=== PATIENT | male | born 1960 | race Caucasian/White ===

== ENCOUNTER 2021-03-07 12:10 | Inpatient (IN) ==
[2021-03-07] MEDS ORDERED: ONDANSETRON INJ 2 MG/ML 2 ML VIAL IV STA (12:26)
[2021-03-07] MEDS ORDERED: MoRPHine SULFATE 4 MG/ML 1 ML CARP\\VIAL IV STA (12:26)
[2021-03-07] MEDS ORDERED: SODIUM CHLORIDE 0.9% 1000ML 1,000 ML IV SCH (12:30)
[2021-03-07 12:55] LABS: Basophils # (auto) 0.02 K/uL (0-0.2); Basophils % (auto) 0.2 %; Eosinophils # (auto) 0.18 K/uL (0-0.5); Eosinophils % (auto) 2.2 %; Hematocrit (blood only) 46.3 % (42-52); Hemoglobin 16.1 g/dL (14.0-18.0); Immature Granulocytes # (auto) 0.01 K/uL (0.00-0.02); Immature Granulocytes % (auto) 0.1 %; Lymphocytes # (auto) 1.71 K/uL (1.2-3.4); Lymphocytes % (auto) 20.9 %; Mean Corpuscular Hemoglobin 31.2 pg (25-34); Mean Corpuscular Hgb Conc 34.8 g/dL (32-36); Mean Corpuscular Volume 89.7 fL (80-100); Mean Platelet Volume 9.7 fL (7.4-10.4); Neutrophils # (auto) 5.36 K/uL (1.4-6.5); Neutrophils % (auto) 65.6 %; Platelet Count 260 K/uL (130-400); RDW Coefficient of Variation 12.4 % (11.5-14.5); RDW Standard Deviation 40.5 fL (36.4-46.3); Red Blood Count 5.16 M/uL (4.7-6.1); White Blood Count 8.18 K/uL (4.8-10.8)
[2021-03-07 13:05] LABS: INR 1.1 (0.9-1.1); Partial Thromboplastin Time 26.8 Seconds (21.0-31.0); Prothrombin Time 10.8 Seconds (9.0-12.0)
[2021-03-07 13:20] LABS: BUN Creatinine Ratio 19.3 (10-20); Calcium 9.4 mg/dl (8.5-10.1); Creatinine Clr Calc Pharmacy 82.9 ml/min; Est GFR (African American) 84.8 ml/min; Est GFR (Non-African American) 73.2 ml/min; Potassium 3.9 mmol/L (3.5-5.1)
--- NOTE | 2021-03-07 14:01 | Emergency Department Note ---
History of Present Illness General Chief Complaint: Back Injury/Pain Stated Complaint: REF BY DR BLACKWELL FOR EMERGENCY BACK SURGERY Time Seen by Provider: 03/07/21 12:18 History of Present Illness Provider Complaint: back pain Onset (ago): year(s) 1 Duration: progressively worsening Similar Symptoms Previously: No Location: lumbar spine Radiation: none Relieved By: + none Exacerbated By: + movement Associated symptoms: + numbness and + loss of sensation in lower extremities; no increased urinary urgency, no increased urinary frequency, no fecal incontinence, no a change in bowel habits, no fever, no chills, no abdominal pain, no dysuria, no hematuria, no parasthesias, no arthralgias or no myalgias Patient states he was seen by Dr. Blackwell orthospine in the office yesterday and referred to the emergency department for emergency surgery. Past Med/Surg History Medical History (Updated 03/07/21 @ 14:12 by Chemo Keith) No pertinent family history No pertinent past medical history Surgical History (Updated 03/07/21 @ 14:00 by Chemo Keith) No pertinent past surgical history Social History Smoking Status: Never smoker Feels Safe at Home: Yes Review of Systems A total of 10 systems reviewed and were otherwise negative Physical Exam Vital Signs Vital Signs - 24 hr 03/07/21 12:13 03/07/21 13:05 Temperature 36.3 C L Temperature Source Temporal Artery Scan Pulse Rate 75 Pulse Rate [Right Finger] 72 Pulse Rhythm Regular Pulse Rhythm [Right Finger] Regular Pulse Strength Normal Pulse Strength [Right Finger] Normal Respiratory Rate 20 17 Respiratory Effort / Characteristics Non-Labored Spontaneous Non-Labored Respiratory Depth Normal Normal Respiratory Pattern Regular Blood Pressure 182/86 H Blood Pressure [Left Arm] 171/98 H Blood Pressure Mean 118 Blood Pressure Mean [Left Arm] 122 Blood Pressure Position [Left Arm] Sitting Pulse Oximetry 99 92 Oxygen Delivery Method Room Air Room Air Sepsis Recent Fever Within 48 Hours No Sepsis New/Unexplained Change in Mental Status N/A Sepsis Action Taken by Nursing No Action Required Physical Exam GENERAL: He is oriented to person, place, and time. He appears well-developed and well-nourished. He does not appear distressed. HENT: Exam performed. - Head: Normocephalic and atraumatic. - Right Ear: External ear normal. No mastoid tenderness. - Left Ear: External ear normal. No mastoid tenderness. - Mouth/Throat: The oropharynx is clear and moist. No trismus in the jaw. No dental abscesses or uvula swelling. No oropharyngeal exudate or tonsillar abscesses. EYES: Conjunctivae and EOM are normal. Pupils are equal, round, and reactive to light. Right eye exhibits no discharge. Left eye exhibits no discharge. No scleral icterus. NECK: Normal range of motion. Neck supple. No JVD present. No spinous process tenderness present. No carotid bruit present. No rigidity. No tracheal deviation and normal range of motion present. No Brudzinski's sign and no Kernig's sign noted. CV: Normal rate, regular rhythm, normal heart sounds and intact distal pulses. There is no peripheral edema. Palpable radial pulses bue. PULM/CHEST: Effort normal and breath sounds normal. No respiratory distress. No stridor. He has no wheezes. He has no rales. - Chest Wall: He exhibits no tenderness. ABD: The abdomen is soft. Bowel sounds are normal. He has no distension. No mass is present. There is no tenderness. There is no rebound, no guarding, no Scott's sign and no tenderness at McBurney's point. Rovsig negative. MUSC/SKEL: No C or T-spine tenderness. Mild pain on palpation of the lumbar spine and lumbar paraspinal muscles bilaterally. NEURO: He is alert and oriented to person, place, and time. He has normal strength. No cranial nerve deficit or sensory deficit. Coordination and gait normal. GCS eye subscore is 4. GCS verbal subscore is 5. GCS motor subscore is 6. Cerebellar tests wnl. SKIN: Skin is warm and dry. He is not diaphoretic. PSYCH: He has a normal mood and affect. Behavior is normal. Judgment and thought content normal. Course Course 1218: The patient was evaluated in room C12. A complete history and physical ex am was performed Cardiac monitoring: An order was placed for continuous cardiac monitoring. The monitor shows a rate of 70 with sinus rhythm 1409: Sp[place] with Jonahtan [place] [facility] Dr. Blackwell will be down to evaluate the patient. 1411: Spoke with Dr. Blackwell who states he will admit the patient to his service. He states the MRI that he reviewed yesterday shows spinal stenosis that he needs to operate on. Administered Medications Sodium Chloride (Nss 1000ml) 1,000 mls @ 80 mls/hr IV .[id number] HETAL Stop: 04/06/21 12:29 Last Admin: 03/07/21 12:48 Dose: 80 mls/hr Documented by: [id number] Discontinued Medications Morphine Sulfate (Morphine Sulfate 4 Mg/Ml 1 Ml Carp\Vial) 4 mg IV NOW STA Stop: 03/07/21 12:27 Last Admin: 03/07/21 12:48 Dose: 4 mg Documented by: [id number] Ondansetron HCl (Ondansetron Inj 2 Mg/Ml 2 Ml Vial) 4 mg IV NOW STA Stop: 03/07/21 12:27 Last Admin: 03/07/21 12:48 Dose: 4 mg Documented by: [id number] Medical Decision Making Laboratory Data Result diagrams: 03/07/21 12:40 03/07/21 12:40 Lab Results 03/07/21 03/07/21 03/07/21 Range/Units 12:40 12:40 12:40 WBC 8.18 (4.8-10.8) K/uL RBC 5.16 (4.7-6.1) M/uL Hgb 16.1 (14.0-18.0) g/dL Hct 46.3 (42-52) % MCV 89.7 (80-100) fL MCH 31.2 (25-34) pg MCHC 34.8 (32-36) g/dL RDW Std Deviation 40.5 (36.4-46.3) fL RDW Coeff of Roberto 12.4 (11.5-14.5) % Plt Count 260 (130-400) K/uL MPV 9.7 (7.4-10.4) fL Immature Gran % (Auto) 0.1 % Neut % (Auto) 65.6 % Lymph % (Auto) 20.9 % [place] % (Auto) 11.0 % Eos % (Auto) 2.2 % Baso % (Auto) 0.2 % Neut # (Auto) 5.36 (1.4-6.5) K/uL Lymph # (Auto) 1.71 (1.2-3.4) K/uL [place] # (Auto) 0.90 H (0.11-0.59) K/uL Eos # (Auto) 0.18 (0-0.5) K/uL Baso # (Auto) 0.02 (0-0.2) K/uL Immature Gran # (Auto) 0.01 (0.00-0.02) K/uL PT 10.8 (9.0-12.0) Seconds INR 1.1 (0.9-1.1) APTT 26.8 (21.0-31.0) Seconds PTT Ratio 1.0 Sodium 139 (136-145) mmol/L Potassium 3.9 (3.5-5.1) mmol/L Chloride 106 (98-107) mmol/L Carbon Dioxide 28 (21-32) mmol/L Anion Gap 5.0 (3-11) BUN 21 H (7-18) mg/dl Creatinine 1.08 (0.6-1.4) mg/dl Est Cr Clr Drug Dosing 82.9 ml/min Est GFR ( Amer) 84.8 ml/min Est GFR (Non-Af Amer) 73.2 ml/min BUN/Creatinine Ratio 19.3 (10-20) Glucose 95 (70-99) mg/dl Calcium 9.4 (8.5-10.1) mg/dl SARS-CoV-2, RNA, NAAT (NEGATIVE) 03/07/21 Range/Units 12:50 WBC (4.8-10.8) K/uL RBC (4.7-6.1) M/uL Hgb (14.0-18.0) g/dL Hct (42-52) % MCV (80-100) fL MCH (25-34) pg MCHC (32-36) g/dL RDW Std Deviation (36.4-46.3) fL RDW Coeff of Roberto (11.5-14.5) % Plt Count (130-400) K/uL MPV (7.4-10.4) fL Immature Gran % (Auto) % Neut % (Auto) % Lymph % (Auto) % [place] % (Auto) % Eos % (Auto) % Baso % (Auto) % Neut # (Auto) (1.4-6.5) K/uL Lymph # (Auto) (1.2-3.4) K/uL [place] # (Auto) (0.11-0.59) K/uL Eos # (Auto) (0-0.5) K/uL Baso # (Auto) (0-0.2) K/uL Immature Gran # (Auto) (0.00-0.02) K/uL PT (9.0-12.0) Seconds INR (0.9-1.1) APTT (21.0-31.0) Seconds PTT Ratio Sodium (136-145) mmol/L Potassium (3.5-5.1) mmol/L Chloride (98-107) mmol/L Carbon Dioxide (21-32) mmol/L Anion Gap (3-11) BUN (7-18) mg/dl Creatinine (0.6-1.4) mg/dl Est Cr Clr Drug Dosing ml/min Est GFR ( Amer) ml/min Est GFR (Non-Af Amer) ml/min BUN/Creatinine Ratio (10-20) Glucose (70-99) mg/dl Calcium (8.5-10.1) mg/dl SARS-CoV-2, RNA, NAAT NEGATIVE (NEGATIVE) MDM Narrative 1218: The patient was evaluated in room C12. A complete history and physical exam was performed Cardiac monitoring: An order was placed for continuous cardiac monitoring. The monitor shows a rate of 70 with sinus rhythm 1409: Spoke with Jonathan [place] [facility] Dr. Blackwell will be down to evaluate the patient. 1411: Spoke with Dr. Blackwell who states he will admit the patient to his service. He states the MRI that he reviewed yesterday shows spinal stenosis that he needs to operate on. Impression & Plan Spinal stenosis Discharge Plan Visit Data Chief Complaint: Back Injury/Pain Stated Complaint: REF BY DR BLACKWELL FOR EMERGENCY BACK SURGERY ED Provider: Chemo Keith Discharge Problem: Spinal stenosis Patient Disposition: Admitted As Inpatient Forms Stand Alone Forms: My [facility] Referrals Referrals: PCP,NO [Primary Care Provider] -
--- NOTE | 2021-03-07 15:13 | History & Physical Report ---
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 Subsequently in light of his presentation and imaging findings are recommending urgent thoracic decompression and fusion T10-T11 to address the severe spinal stenosis stabilize the thoracic spine and hopefully halt the progression of myelopathy. He understands that he may not have significant improvement in function. Any return of function may take many months to a year. Risk benefits pros cons alternatives were outlined in detail. We will admit him to the hospital have him evaluated by medicine and plan for surgery as soon as possible in the a.m. History of Present Illness Chief Complaint: Bilateral lower extremity and perineal numbness with changes in urinary function. Primary Care Provider: NO PCP This is a 60-year-old male that presents with dense bilateral leg numbness including the perineal area that is been progressive over the past several months. He now states he has difficulty with walking significant lower extremity coordination deficits. Denies any specific trauma fall or event. 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 He does not describe any significant pain associated with this. He is noting numbness in the perineal area and difficulty urinating. Allergies Allergy/AdvReac Type Severity Reaction Status Date / Time No Known Allergies Allergy Unverified 03/07/21 14:14 Home Medications Medication Instructions Recorded Confirmed Type No Known Home Medications 03/07/21 03/07/21 History Past Med/Surg History Medical History (Updated 03/07/21 @ 15:11 by Paolo Blackwell DO) No pertinent family history No pertinent past medical history Surgical History (Updated 03/07/21 @ 14:00 by Chemo Keith) No pertinent past surgical history Social History Smoking Status: Never smoker Feels Safe at Home: Yes Physical Exam Physical Exam: Patient is alert and oriented cooperative. Is able to ambulate with a widened gait. He cannot heel and toe walk without stumbling. Bench exam reveals a brisk bilateral patellar reflexes and a 3-4 beat clonus to the bilateral Achilles. He has no gross tension signs. Marked decreased sensation to the lower extremities. Results & Data ([facility]) Vital Signs (Past 12 Hours) Vital Signs Temp Pulse Pulse Resp BP BP Pulse Ox 03/07/21 13:05 72 17 171/98 H 92 03/07/21 12:13 36.3 C L 75 20 182/86 H 99 Code Status & VTE Plan VTE Prophylaxis Plan VTE Prophylaxis will be ordered: Yes
[2021-03-07] MEDS ORDERED: ACETAMINOPHEN 500 MG TAB PO PRN (16:49)
[2021-03-07] MEDS ORDERED: METOCLOPRAMIDE HCL INJ 5 MG/ML 2 ML VIAL IV PRN (16:49)
[2021-03-07] MEDS ORDERED: hydrOXYzine HCl 25 MG TAB PO PRN (16:49)
[2021-03-07] MEDS ORDERED: ONDANSETRON 4 MG OD TAB PO PRN (16:49)
[2021-03-07] MEDS ORDERED: diphenhydrAMINE Capsule 25 MG CAP PO PRN (16:49)
[2021-03-07] MEDS ORDERED: ACETAMINOPHEN 1,000 MG/100 ML VIAL IV PRN (16:49)
[2021-03-07] MEDS ORDERED: LORazepam 0.5 MG/1 ML VIAL IV PRN (16:49)
[2021-03-07] MEDS ORDERED: oxyCODONE HCL IR 5 MG TAB (IMMEDIATE RELEASE) PO PRN (16:49)
[2021-03-07] MEDS ORDERED: NALOXONE HCL 0.4 MG/1 ML VIAL/CARP IV PRN (16:49)
[2021-03-07] MEDS ORDERED: HYDROmorphone INJ 1 MG/ML SYRINGE IV PRN (16:49)
[2021-03-07] MEDS ORDERED: MAGNESIUM HYDROXIDE SUSP 30 ML UDC PO PRN (16:49)
[2021-03-07] MEDS ORDERED: HYDROmorphone INJ 0.5 MG/0.5 ML SYR IV PRN (16:49)
[2021-03-07] MEDS ORDERED: ALUMINUM/MAGNESIUM SUSP 30 ML UDC PO PRN (16:49)
[2021-03-07] MEDS ORDERED: ONDANSETRON INJ 2 MG/ML 2 ML VIAL IV PRN (16:49)
[2021-03-07] MEDS ORDERED: traMADol HCL 50 MG TABLET PO PRN (16:49)
[2021-03-07] MEDS ORDERED: PROMETHAZINE HCL 12.5 MG in SODIUM CHLORIDE 0.9% 50 ML IV PRN (16:49)
[2021-03-07] MEDS ORDERED: LORazepam 0.5 MG TAB PO PRN (16:49)
[2021-03-07] MEDS: LACTATED RINGER'S 1,000 ML IV SCH ×2 (17:12→17:14)
[2021-03-08] MEDS ORDERED: ceFAZolin 2000MG 2,000 MG/15 ML SYR IV SCH (06:00)
[2021-03-08] MEDS: LACTATED RINGER'S 1,000 ML IV SCH ×2 (06:36→18:25)
--- NOTE | 2021-03-08 09:23 | Anesthesiology Consultation ---
Date of Service March 08, 2021 Assessment & Plan Chart Review Chart Review: Acceptable Risk for Surgery and Patient NOT seen in Pre Admission Testing Consults Requested none ASA ASA2 Proposed Anesthesia Anesthesia Type: General History Surgery Operation Date: 03/08/21 11:45 Proposed Procedures p T10-T11 Thoracic Decompression Fusion - Paolo Blackwell DO Height/Weight Height: 5 ft 10 in Weight: 93.6 kg Allergies Allergy/AdvReac Type Severity Reaction Status Date / Time No Known Allergies Allergy Unverified 03/07/21 14:14 Medications Home Medications Medication Instructions Recorded Confirmed Last Taken No Known Home Medications 03/07/21 03/07/21 Unknown Active Medications Generic Name Dose Route Start Last Admin Trade Name Freq PRN Reason Stop Dose Admin Lactated Ringer's 1,000 mls @ 75 mls/hr 03/07/21 16:49 03/08/21 06:36 Lr IV 04/06/21 16:48 75 mls/hr .[id number] HTEAL Administration Past Medical History Medical History No pertinent family history No pertinent past medical history Exercise / Class Metabolic Activity II 4-5 Yardwork/Stairs/Walk up hill Past Surgical History Surgical History No pertinent past surgical history Past Anesthesia History No Hx of Anesthesia Complications and No Family Hx of Anesthesia Complications History of PONV No Hx of PONV and No Hx of Motion Sickness Social History Smoking Status: Never smoker Hx Alcohol Use: Yes Alcohol type: beer alcohol intake frequency: holidays/special occasions only Hx Substance Use: No Physical Exam Vital Signs Last Vital Signs Temp 36.8 C 03/08/21 06:57 Pulse 65 03/08/21 06:57 Resp 18 03/08/21 06:57 BP 127/83 03/08/21 06:57 Pulse Ox 95 03/08/21 06:57 Testing Laboratory Results 03/07/21 12:40 03/07/21 12:40 PT 10.8 Seconds (9.0-12.0) 03/07/21 12:40 INR 1.1 (0.9-1.1) 03/07/21 12:40 APTT 26.8 Seconds (21.0-31.0) 03/07/21 12:40 Electrocardiogram Date: 03/07/21 Findings: + NSR @ (@ 67)
--- NOTE | 2021-03-08 12:08 | History & Physical Bridge Note ---
Date of Service March 08, 2021 History & Physical Bridge Note I have examined the patient, reviewed the History & Physical and in the interval since the performance of the History & Physical I have noted the following changes of clinical significance: Patient continues to demonstrate evidence of advanced thoracic myelopathy with dense lower extremity weakness coordination deficits and urinary changes. He is now n.p.o. and safe to undergo general anesthesia. In light of his presentation evidence of myelomalacia of the thoracic spine recommending emergent decompression fusion T10-T11.
[2021-03-08] MEDS ORDERED: ATROPINE SULFATE 0.1 MG/ML 10ML SYR IV PRN (13:07)
[2021-03-08] MEDS ORDERED: fentaNYL citrate 100 MCG/2 ML VIAL IV PRN (13:07)
[2021-03-08] MEDS ORDERED: HYDROmorphone INJ 1 MG/ML SYRINGE IV PRN ×2 (13:07→16:54)
[2021-03-08] MEDS ORDERED: ONDANSETRON INJ 2 MG/ML 2 ML VIAL IV PRN ×2 (13:07→16:54)
[2021-03-08] MEDS ORDERED: ePHEDrine sulfate 50 MG/ML AMP IV PRN (13:07)
[2021-03-08] MEDS ORDERED: LIDOCAINE 2% 2 ML VIAL/AMP(20MG/ML) INFIL ONE (13:10)
[2021-03-08] MEDS ORDERED: MIDAZOLAM HCL 1 MG/ML 2ML VIAL ONE (13:10)
[2021-03-08] MEDS ORDERED: ONDANSETRON INJ 2 MG/ML 2 ML VIAL ONE (13:10)
[2021-03-08] MEDS ORDERED: GLYCOPYRROLATE 0.2 MG/ML VIAL ONE (13:10)
[2021-03-08] MEDS ORDERED: fentaNYL citrate 100 MCG/2 ML VIAL ONE (13:10)
[2021-03-08] MEDS ORDERED: DEXAMETHASONE SOD INJ 4 MG/ML VIAL ONE (13:10)
[2021-03-08] MEDS ORDERED: PROPOFOL IV EMULSION 10 MG/ML 20 ML VIAL IV ONE (13:10)
[2021-03-08] MEDS ORDERED: NEOSTIGMINE METHYLSULFATE 1 MG/ML 10ML VIAL ONE (13:10)
[2021-03-08] MEDS ORDERED: EPINEPHrine INJ 1 MG/ML AMP ONE (13:52)
[2021-03-08] MEDS ORDERED: BUPIVACAINE 0.5 % 5 MG/1 ML MPF 30ML VIAL ONE (13:52)
[2021-03-08] MEDS ORDERED: BUPIVACAINE/EPINEPHRINE 0.25% 1:200,000 30 ML VIAL ONE (14:09)
[2021-03-08] MEDS ORDERED: ROCURONIUM BROMIDE 10 MG/ML 5 ML VIAL IV ONE (14:45)
[2021-03-08] MEDS ORDERED: HYDROmorphone INJ 2 MG/ML SYR/VIAL ONE (14:45)
--- NOTE | 2021-03-08 14:59 | History & Physical Report ---
Date of Service March 08, 2021 Assessment & Plan (1) Myelopathy concurrent with and due to spinal stenosis of thoracic region: Plan: Patient presents with lower extremity weakness and numbness MRI of thoracic spine showed evidence of severe stenosis Plan is thoracic decompression and fusion Rest of mgt per spine surgery (2) Spinal stenosis: Plan: plan as above Plan: Patient is medically stable and optimized for surgery Admission and Anticipated Discharge Date Admission Date: March 07, 2021 History of Present Illness Chief Complaint: lower extremity weakness Primary Care Provider: NO PCP This is a 60-year-old male with no significant past medical history who presents to the hospital with bilateral lower extremity numbness difficulty walking several days a months duration. Further investigation with MRI of the thoracic spine showed evidence of severe spinal stenosis T10-T11 with diffuse my elomalacia. Patient was admitted under orthospine services however internal medicine has been consulted for medical management. Plan is for thoracic decompression and fusion. Vital signs stable, blood pressure 140/56, pulse 65. Allergies Allergy/AdvReac Type Severity Reaction Status Date / Time No Known Allergies Allergy Unverified 03/07/21 14:14 Home Medications Medication Instructions Recorded Confirmed Type No Known Home Medications 03/07/21 03/07/21 History Past Med/Surg History Medical History No pertinent family history No pertinent past medical history Surgical History No pertinent past surgical history Social History Smoking Status: Never smoker Hx Alcohol Use: Yes Alcohol type: beer Hx Substance Use: No Communication Ability: Effective Station Superintendent Required: No Beliefs That Will Affect Care: None Current Living Situation: Spouse Other Information That Helps Us Care for You: No Feels Safe at Home: Yes Safety Concerns: Feels Safe At This Time Assistive Devices: None Review of Systems Review of Systems: All systems reviewed are negative, apart from the ones contained in the history. Physical Exam Physical Exam: The patient is awake, alert and oriented 3, well developed and well nourished, normocephalic and atraumatic, lying in bed and in no acute distress. HEENT--PERRL, EOMI, mucous membranes and oropharynx mildly dry Neck--supple. No JVD. No bruits. Thyroid normal, trachea midline, no adenopathy. Heart--normal S1 and S2. No murmurs, rubs or gallops. Lungs--clear bilaterally, no respiratory distress, no accessory muscle use. Abdomen--normal bowel sounds and soft. Mild epigastric and left sided abdominal pain Extremities--no cyanosis or clubbing. No edema. Dermatologic--normal skin turgor, normal color, no abnormal lymph nodes, no rash. Neurologic--cranial nerves II through XII grossly intact. Rheumatologic--normal range of motion. Psychiatric--normal affect. Results & Data Results & Data ([facility]) Vital Signs (Past 12 Hours) Vital Signs Temp Pulse Resp BP Pulse Ox 03/08/21 12:20 98.1 F 65 18 140/56 L 95 03/08/21 06:57 98.2 F 65 18 127/83 95 Code Status & VTE Plan VTE Prophylaxis Plan VTE Prophylaxis will be ordered: Yes PG Care Time/CCT Total # of Minutes Spent Total Time Spent with Patient: Total time spent is greater than 50% in coordination of care (as documented) at patient's floor/unit and/or counseling patient: Coding Level of Care Code INT OBSERVATION CARE 70M LVL 3 Diagnoses Myelopathy concurrent with and due to spinal stenosis of thoracic region M48.04; G99.2 Spinal stenosis M48.05 Spinal region: thoracolumbar CPT Codes Initial Inpatient Consult, Lvl 3 - [id number] ([id number]) Time Spent (min) 35 (1) Spinal stenosis Spinal region: thoracolumbar Qualified Code(s): M48.05 - Spinal stenosis, thoracolumbar region
--- NOTE | 2021-03-08 15:56 | Fluoroscopy Report ---
FL thoracic spine 2V CLINICAL HISTORY: T10-11 DECOMPRESSION/FUSION COMPARISON STUDY: None. FLUOROSCOPY TIME: 31 seconds. FINDINGS: 2 fluoroscopic spot images of the thoracic spine demonstrate posterior decompression and fu brian within the lower thoracic spine with pedicle screws and rods. The exact levels are difficult to assess on this study but favor the T10-T11 location. The hardware appears intact. IMPRESSION: Fluoroscopic assistance provided for T10-11 posterior decompression and fusion ACT 112: Negative or not required by law. Electronically signed by: Frantz Clarke M.D. 03/08/2021 3:54 PM
--- NOTE | 2021-03-08 15:59 | Operative Report ---
Post Operative Report Pre & Post Diagnosis Operation Date: 03/08/21 11:45 Pre-Op Diagnosis: THORACIC MYELOPATHY Post-Op Diagnosis: THORACIC MYELOPATHY I identified the patient and participated in the time-out.: Yes Procedure Operation Date: 03/08/21 11:45 Actual Procedures #1 thoracic decompression bilateral medial facetectomies and foraminotomies T10-T11. #2 posterior spinal fusion T10-T11. #3 placement posterior instrumentation T10-T11. #4 placement of infuse collagen sponge, master graft in the posterior gutters. #5 placement of locally harvested morselized autograft in the posterior gutters. Surgeon Paolo Blackwell, DO Pot Filler None Estimated Blood Loss 100 Findings Consistent with Post-Op Diagnosis Specimens None Indications This is a 60-year-old male who presents with significant decline in neurologic status. He experienced dense numbness from the perineal area distally. He also noted significant urinary retention. Subsequently he is here to undergo emergent thoracic decompression for severe spinal stenosis and thoracic myelopathy. Description of Procedure Patient was met with identified informed consent obtained. Patient was then taken to the operative suite underwent ablation placed in prone position just table top of the Piotr frame. A bony promises well-padded eyes inspected to ensure no external pressure placed upon the. This point the thoracic spine was prepped and draped in a sterile fashion. Sharp dissection with the assistance pericardial form down to and exposing the lamina and transverse processes of T10-T11. From a caudal to cephalad fashion a complete laminectomy of T10 was performed. Obvious instability was appreciated with laxity noted in the facet joints. I performed medial facetectomies to adequately and completely decompress the canal. Pedicle screws then placed in T10-T11 with the assistance of fluoroscopy and the process gonzález locked in position. Transverse processes of T10 and T11 were then burred to subcortically bone. Infuse collagen sponge master graft lobe autograft was placed in the posterior gutters. 15 round TIFFANIE drain inserted. The incision was then closed with 1 Vicryl to fascia 2-0 Vicryl subcutaneously and 4 Monocryl for final skin closure. Steri-Strip sterile dressings placed. Patient will continue PACU stable condition. Please note spinal cord monitoring was utilized at the procedure no changes noted. I attest to the content of the Intraoperative Record and any orders documented therein. Any exceptions are noted below.
[2021-03-08] MEDS ORDERED: SUCCINYLCHOLINE CHLORIDE 20 MG/ML 10 ML VIAL IV ONE (16:03)
--- NOTE | 2021-03-08 16:40 | Anesthesiology Progress Note ---
Date of Service March 08, 2021 Anesthesia Post Procedure Vital Signs Vital Signs: Temp Pulse Resp BP Pulse Ox 03/08/21 16:35 62 18 159/86 H 98 03/08/21 16:25 62 18 168/98 H 98 03/08/21 16:15 66 18 162/99 H 98 03/08/21 16:07 36.3 C L 66 18 163/102 H 98 03/08/21 12:20 36.7 C 65 18 140/56 L 95 03/08/21 06:57 36.8 C 65 18 127/83 95 03/07/21 22:29 36.9 C 68 16 152/78 H 93 03/07/21 16:50 37.0 C 79 16 149/90 H 94 Transfer of Care Handoff Completed per policy Notes Mental Status: alert / awake / arousable Patient Amnestic to Procedure: Yes Nausea / Vomiting: adequately controlled Pain: adequately controlled Airway Patency, RR, SpO2: stable & adequate BP & HR: stable & adequate Hydration State: stable & adequate Anesthetic Complications: no major complications apparent and Pt Satisfied with anesthetic care
[2021-03-08] MEDS ORDERED: HYDROmorphone INJ 0.5 MG/0.5 ML SYR IV PRN (16:54)
[2021-03-08] MEDS ORDERED: SOD PHOSPHATE/SOD BIPHOSPHATE ENEMA 132 ML BTL PR PRN (16:54)
[2021-03-08] MEDS ORDERED: hydrOXYzine HCl 25 MG TAB PO PRN (16:54)
[2021-03-08] MEDS ORDERED: NALOXONE HCL 0.4 MG/1 ML VIAL/CARP IV PRN (16:54)
[2021-03-08] MEDS ORDERED: ACETAMINOPHEN 1,000 MG/100 ML VIAL IV PRN (16:54)
[2021-03-08] MEDS ORDERED: LORazepam 0.5 MG/1 ML VIAL IV PRN (16:54)
[2021-03-08] MEDS ORDERED: METOCLOPRAMIDE HCL INJ 5 MG/ML 2 ML VIAL IV PRN (16:54)
[2021-03-08] MEDS ORDERED: ONDANSETRON 4 MG OD TAB PO PRN (16:54)
[2021-03-08] MEDS ORDERED: oxyCODONE HCL IR 5 MG TAB (IMMEDIATE RELEASE) PO PRN (16:54)
[2021-03-08] MEDS ORDERED: DO NOT ADMINISTER FLU VACCINE PRN (16:54)
[2021-03-08] MEDS ORDERED: DO NOT ADMINISTER PNEUMOCOCCAL VACCINE PRN (16:54)
[2021-03-08] MEDS ORDERED: ALUMINUM/MAGNESIUM SUSP 30 ML UDC PO PRN (16:54)
[2021-03-08] MEDS ORDERED: bisacodyL 10 MG SUPP PR PRN (16:54)
[2021-03-08] MEDS ORDERED: diphenhydrAMINE Capsule 25 MG CAP PO PRN (16:54)
[2021-03-08] MEDS ORDERED: FAMOTIDINE 20 MG TAB PO PRN (16:54)
[2021-03-08] MEDS ORDERED: MAGNESIUM HYDROXIDE SUSP 30 ML UDC PO PRN (16:54)
[2021-03-08] MEDS ORDERED: LORazepam 0.5 MG TAB PO PRN (16:54)
[2021-03-08] MEDS ORDERED: PROMETHAZINE HCL 12.5 MG in SODIUM CHLORIDE 0.9% 50 ML IV PRN (16:54)
[2021-03-08] MEDS: KETOROLAC TROMETHAMINE 15 MG/ML VIAL IV SCH (18:33)
[2021-03-08] MEDS: dexAMETHasone 6 MG in SYRINGE 0 ML IV SCH (18:37)
[2021-03-08] MEDS: ACETAMINOPHEN 500 MG TAB PO PRN (22:10)
[2021-03-08] MEDS: DOCUSATE SODIUM/SENNA 50/8.6MG TAB PO SCH (22:21)
[2021-03-08] MEDS: ceFAZolin 2000MG 2,000 MG/15 ML SYR IV SCH (22:21)
[2021-03-09] MEDS: dexAMETHasone 6 MG in SYRINGE 0 ML IV SCH ×2 (00:34→10:49)
[2021-03-09] MEDS: KETOROLAC TROMETHAMINE 15 MG/ML VIAL IV SCH ×3 (00:34→12:04)
[2021-03-09] MEDS: LACTATED RINGER'S 1,000 ML IV SCH (05:11)
[2021-03-09] MEDS: POLYETHYLENE (MIRALAX) 17 GM PACK PO SCH ×4 (05:14→23:40)
[2021-03-09] MEDS: ceFAZolin 2000MG 2,000 MG/15 ML SYR IV SCH (05:14)
[2021-03-09 07:44] LABS: Hematocrit (blood only) 39.8 % (42-52); Hemoglobin 13.9 g/dL (14.0-18.0); Immature Granulocytes # (auto) 0.02 K/uL (0.00-0.02); Immature Granulocytes % (auto) 0.1 %; Lymphocytes # (auto) 0.64 K/uL (1.2-3.4); Lymphocytes % (auto) 4.4 %; Mean Corpuscular Hemoglobin 31.3 pg (25-34); Mean Corpuscular Hgb Conc 34.9 g/dL (32-36); Mean Corpuscular Volume 89.6 fL (80-100); Mean Platelet Volume 9.8 fL (7.4-10.4); Monocytes # (auto) 0.48 K/uL (0.11-0.59); Monocytes % (auto) 3.3 %; Neutrophils # (auto) 13.47 K/uL (1.4-6.5); Neutrophils % (auto) 92.2 %; Platelet Count 266 K/uL (130-400); RDW Coefficient of Variation 12.3 % (11.5-14.5); RDW Standard Deviation 40.6 fL (36.4-46.3); Red Blood Count 4.44 M/uL (4.7-6.1); White Blood Count 14.61 K/uL (4.8-10.8)
[2021-03-09 08:01] LABS: BUN Creatinine Ratio 19.1 (10-20); Calcium 8.6 mg/dl (8.5-10.1); Creatinine Clr Calc Pharmacy 67.7 ml/min; Est GFR (African American) 67.8 ml/min; Est GFR (Non-African American) 58.5 ml/min
--- NOTE | 2021-03-09 08:46 | Orthopedic Progress Note ---
Date of Service March 09, 2021 Assessment & Plan (1) Myelopathy concurrent with and due to spinal stenosis of thoracic region: Plan: At this time we will initiate physical therapy. I will maintain IV Decadron. We will monitor his drain. Hopefully be able to discharge home later after this weekend. Admission and Anticipated Discharge Date Admission Date: March 07, 2021 Subjective Patient's back pain is controlled. He feels his leg symptoms are markedly improved regarding the numbness and tingling. He is urinating well. Physical Exam Physical Exam: Patient is in bed. He appears comfortable. Is good strength testing lower extremities. Results & Data ([facility]) Vital Signs (Past 12 Hours) Vital Signs Temp Pulse Resp BP Pulse Ox 03/09/21 08:30 36.9 C 65 16 112/72 97 03/09/21 05:10 36.5 C 73 20 112/66 91 03/08/21 22:28 36.6 C 81 18 154/70 H 94
[2021-03-09] MEDS ORDERED: bisacodyL 10 MG SUPP PR PRN (14:24)
--- NOTE | 2021-03-09 14:45 | Hospitalist Progress Note ---
Date of Service March 09, 2021 Assessment & Plan (1) Myelopathy concurrent with and due to spinal stenosis of thoracic region: Plan: Patient presents with lower extremity weakness and numbness MRI of thoracic spine showed evidence of severe stenosis He is day 1 post thoracic decompression and fusion Patients symptoms already markedly improved Rest of mgt per spine surgery (2) Spinal stenosis: Plan: plan as above Plan: Discharge plans per ortho Admission and Anticipated Discharge Date Admission Date: March 07, 2021 Subjective Patient seen and examined, says his back pain is controlled. He feels his leg symptoms are markedly improved regarding the numbness and tingling. He is urinating well. Review of Systems Review of Systems: All systems reviewed are negative, apart from the ones contained in the history. Physical Exam Physical Exam: The patient is awake, alert and oriented 3, well developed and well nourished, normocephalic and atraumatic, lying in bed and in no acute distress. HEENT--PERRL, EOMI, mucous membranes and oropharynx mildly dry Neck--supple. No JVD. No bruits. Thyroid normal, trachea midline, no adenopathy. Heart--normal S1 and S2. No murmurs, rubs or gallops. Lungs--clear bilaterally, no respiratory distress, no accessory muscle use. Abdomen--normal bowel sounds and soft. Mild epigastric and left sided abdominal pain Extremities--no cyanosis or clubbing. No edema. Dermatologic--normal skin turgor, normal color, no abnormal lymph nodes, no rash. Neurologic--cranial nerves II through XII grossly intact. Rheumatologic--normal range of motion. Psychiatric--normal affect. Results & Data Results & Data ([facility]) Vital Signs (Past 12 Hours) Vital Signs Temp Pulse Resp BP Pulse Ox 03/09/21 08:30 98.4 F 65 16 112/72 97 03/09/21 05:10 97.7 F 73 20 112/66 91 PG Care Time/CCT Total # of Minutes Spent Total Time Spent with Patient: Total time spent is greater than 50% in coordination of care (as documented) at patient's floor/unit and/or counseling patient: Coding Level of Care Code 13226 Inpt Consult Level 2 Diagnoses Myelopathy concurrent with and due to spinal stenosis of thoracic region M48.04; G99.2 Spinal stenosis M48.05 Spinal region: thoracolumbar Time Spent (min) 35 (1) Spinal stenosis Spinal region: thoracolumbar Qualified Code(s): M48.05 - Spinal stenosis, thoracolumbar region
[2021-03-09] MEDS: DOCUSATE SODIUM/SENNA 50/8.6MG TAB PO SCH (20:01)
--- NOTE | 2021-03-09 20:46 | Electrocardiogram Report ---
Test Reason : Blood Pressure : / mmHG Vent. Rate : 067 BPM Atrial Rate : 067 BPM P-R Int : 162 ms QRS Dur : 098 ms QT Int : 412 ms P-R-T Axes : 012 023 033 degrees QTc Int : 435 ms Normal sinus rhythm Normal ECG No previous ECGs available Confirmed by Michael Marroquin ([id number]) on 03/09/2021 8:46:04 PM Referred By: Paolo Blackwell Confirmed By:Michael Marroquin
[2021-03-10] MEDS: POLYETHYLENE (MIRALAX) 17 GM PACK PO SCH ×4 (05:52→23:23)
--- NOTE | 2021-03-10 10:28 | Orthopedic Progress Note ---
Date of Service March 10, 2021 Assessment & Plan (1) Myelopathy concurrent with and due to spinal stenosis of thoracic region: Plan: At this time we will maintain the TIFFANIE drain today continue activity as tolerated and most likely discharge home tomorrow morning. Admission and Anticipated Discharge Date Admission Date: March 07, 2021 Subjective Back pain is controlled. His leg numbness is steadily improving. Physical Exam Physical Exam: On exam patient is ambulating the halls. We did ask him to heel and toe walk he was somewhat unsteady but improved from his preoperative status. Results & Data ([facility]) Vital Signs (Past 12 Hours) Vital Signs Temp Pulse Resp BP Pulse Ox 03/10/21 07:27 36.5 C 67 16 136/81 96 03/09/21 22:53 36.6 C 70 16 130/74 94
--- NOTE | 2021-03-10 14:51 | Hospitalist Progress Note ---
Date of Service March 10, 2021 Assessment & Plan (1) Myelopathy concurrent with and due to spinal stenosis of thoracic region: Plan: Patient presents with lower extremity weakness and numbness MRI of thoracic spine showed evidence of severe stenosis He is day 2 post thoracic decompression and fusion Patients symptoms already markedly improved Rest of mgt per spine surgery (2) Spinal stenosis: Plan: plan as above Plan: Discharge plans per ortho Admission and Anticipated Discharge Date Admission Date: March 07, 2021 Subjective patient seen and examined, participating in PT, numbness and weakness much improved Review of Systems Review of Systems: All systems reviewed are negative, apart from the ones con tained in the history. Physical Exam Physical Exam: The patient is awake, alert and oriented 3, well developed and well nourished, normocephalic and atraumatic, lying in bed and in no acute distress. HEENT--PERRL, EOMI, mucous membranes and oropharynx mildly dry Neck--supple. No JVD. No bruits. Thyroid normal, trachea midline, no adenopathy. Heart--normal S1 and S2. No murmurs, rubs or gallops. Lungs--clear bilaterally, no respiratory distress, no accessory muscle use. Abdomen--normal bowel sounds and soft. Mild epigastric and left sided abdominal pain Extremities--no cyanosis or clubbing. No edema. Dermatologic--normal skin turgor, normal color, no abnormal lymph nodes, no rash. Neurologic--cranial nerves II through XII grossly intact. Rheumatologic--normal range of motion. Psychiatric--normal affect. Results & Data Results & Data ([facility]) Vital Signs (Past 12 Hours) Vital Signs Temp Pulse Resp BP Pulse Ox 03/10/21 07:27 97.7 F 67 16 136/81 96 PG Care Time/CCT Total # of Minutes Spent Total Time Spent with Patient: Total time spent is greater than 50% in coordination of care (as documented) at patient's floor/unit and/or counseling patient: Coding Level of Care Code 06177 Inpt Consult Level 2 Diagnoses Myelopathy concurrent with and due to spinal stenosis of thoracic region M48.04; G99.2 Spinal stenosis M48.05 Spinal region: thoracolumbar Time Spent (min) 35 (1) Spinal stenosis Spinal region: thoracolumbar Qualified Code(s): M48.05 - Spinal stenosis, thoracolumbar region
[2021-03-10] MEDS: ACETAMINOPHEN 500 MG TAB PO PRN (18:32)
[2021-03-10] MEDS: DOCUSATE SODIUM/SENNA 50/8.6MG TAB PO SCH (20:10)
[2021-03-10] MEDS: traMADol HCL 50 MG TABLET PO PRN (21:09)
[2021-03-11] MEDS: traMADol HCL 50 MG TABLET PO PRN ×2 (00:27→12:17)
[2021-03-11] MEDS: POLYETHYLENE (MIRALAX) 17 GM PACK PO SCH ×2 (05:12→11:05)
[2021-03-11] MEDS ORDERED: dexAMETHasone 8 MG in SYRINGE 0 ML IV SCH (09:00)
--- NOTE | 2021-03-11 11:13 | Discharge Summary ---
Date of Service March 11, 2021 Admission HPI Per Admitting Provider This is a 60-year-old male with no significant past medical history who presents to the hospital with bilateral lower extremity numbness difficulty walking several days a months duration. Further investigation with MRI of the thoracic spine showed evidence of severe spinal stenosis T10-T11 with diffuse myelomalacia. Patient was admitted under orthospine services however internal medicine has been consulted for medical management. Plan is for thoracic decompression and fusion. Vital signs stable, blood pressure 140/56, pulse 65. Principal Diagnosis Thoracic spinal stenosis with myelopathy Discharge Data Allergies Allergy/AdvReac Type Severity Reaction Status Date / Time No Known Allergies Allergy Unverified 03/07/21 14:14 Consultations 03/07/21 14:11 ED Decision to Admit Stat 03/07/21 16:49 Consult Internal Medicine Routine Procedures Performed Operation Date: 03/08/21 11:45 Actual Procedures p T10-T11 Thoracic Decompression Fusion with Application of Bone Morphogenetic Protein, Interbody Fusion with Spinal Cord Monitoring (Not Applicable) - Paolo Blackwell DO Ordered Studies 03/08/21 11:45 [place] thoracic spine 2V Routine Hospital Course (1) Myelopathy concurrent with and due to spinal stenosis of thoracic region: Patient was admitted with severe thoracic myelopathy and neurologic decline. He underwent emergent decompression and fusion the following day. P atient tolerated this well was taken to the orthopedic floor postoperative. Postop day #1 he began ambulating noticing improvement of his lower extremity function. This progressed to postop day #2. TIFFANIE drain decreasing appropriate. Good strength testing. Subsequent discharge home. Discharge orders instructions from the chart for further review. Total Time Total Time Spent Total Time Spent (In Minutes): 20 minutes Discharge Plan Discharge Items Patient Disposition: Home - Self-Care Reason For Visit: THORACIC MYELOPATHY Discharge Diagnosis: Thoracic myelopathy Activity: As commented below Non-emergency contact: Primary Care Provider Call non-emergency contact if: you have any medication questions Follow-up/Referrals: PCP,NO [Primary Care Provider] - Diet: Regular Addtl Attending Provider Instructions: ACTIVITY RECOMMENDATIONS: SELF CARE INSTRUCTIONS AFTER THORACIC/LUMBAR FUSIONS 1. You may walk to your tolerance. It is good exercise for your legs and back. Expect some back and intermittent leg aches and pains. 2. You may perform "counter-top" level activities (make a sandwich, anastacia with a project, etc.). 3. No bending or lifting of more than 10 pounds or back twisting of any nature (roll like a log when turning in bed). 4. You may ride in a car for 20-30 minutes at a time. No driving until after your first visit with your doctor. 5. Frequent changes of position and restricting sitting to 30 minutes at a time will help limit the amount of back spasms and stiffness you may experience. 6. You may discontinue the use of ambulatory aids (cane, crutches, etc.) once your strength and confidence allow. 7. 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 Do not take a tub bath, sit in a hot tub or go into a swimming pool until after your first recheck in the office. SPECIAL CARE INSTRUCTIONS: VERY IMPORTANT TO READ AND REVIEW A. Your surgical incision has been closed with a cosmetic suture under the skin that will dissolve in about 6 weeks. In 14 days, you can use a pair of clean scissors and cut the suture that is left outside of the skin at the ends of your incision. 1. The small skin tapes can be removed 7 days after surgery if they have not fallen off by that point. 2. You may keep the wound open to air as much as possible to promote healing after post-op day number 5 unless told otherwise by your doctor. 3. If you think the wound looks like it is becoming infected (redness or worsening drainage) and/or you are experiencing fever, chill or worsening back pain and muscle spasms, contact the office so that we may evaluate you as soon as possible. B. Complications are uncommon, but please contact us if you have any signs or symptoms of: 1. wound infection (fever higher than 102.5 degrees F, redness, separation of wound, drainage, or increasing pain from the incision) 2. blood clots in legs (pain, swelling, redness and warmth in legs) 3. urinary tract infection (fever higher than 102.5 degrees F, burning upon urination or increased frequency of urination) 4. nerve problems (inability to walk on your toes or heels, numbness, loss of bowel or bladder control) 5. any other symptoms that concern you C. Please call the office at if you have any concerns or questions about your operation or recovery. D. No smoking! Smoking drastically decreases the chance of a solid fusion. E. Do not take any anti-inflammatory medications (Indocin, Advil, Motrin, Aspirin, Naprosyn, etc.) as these may inhibit the chance of a solid fusion. Tylenol is okay to take for pain. MANAGING PAIN AFTER SPINAL SURGERY 1. Narcotic medication is intended for short-term use and will be provided for surgical pain. Surgical pain usually lasts for a period of 4-6 weeks. Narcotic medication includes Percocet, Vicodin, Darvocet, Tylenol #3 or Lortab. 2. Longer-term pain is more appropriately treated with non-narcotic medication such as Tylenol ES. 3. Muscle spasm is not appropriately treated with narcotics. Muscle relaxers such as Soma, Flexeril or Skelaxin can be used along with Tylenol ES. 4. Remember that we all live with some "aches and pains". This is not unusual or uncommon after an injury or as we get older. a. Back pain is expected and may include muscle spasms for 4 to 6 weeks after surgery. The pain should gradually improve. If the pain worsens for no apparent reason, please contact the office. b. Intermittent leg pain may also be experienced and should not be concerned about unless it worsens for no apparent reason. If so, please contact the office. 5. We will provide appropriate medication within the normal guidelines of their prescribed use. We will also be very cautious and aware of potential abuse and extended duration of patients' medication needs. a. Pain medications are for your comfort and to assist with sleep and rest so that the tissue can heal. They are not provided in order to return to normal activity and should not be used through the day. To do so or worsening pain at night can result from ongoing tissue damage and development of tolerance to the prescribed medicine. 6. Please allow 2-3 days to process refills. Prescriptions will not be mailed but must be picked up at the office. FOLLOW UP VISIT: Keep your scheduled follow-up appointment. Any questions, please call the office at . Pending Studies at Discharge: No Stand-Alone Forms: My [employer], Smoking Cessation Medications and DC Order Prescriptions: New tramadol 50 mg tablet 50 mg PO Q6H PRN (Reason: pain, moderate) Qty: 30 RF: 0 oxycodone 5 mg tablet 5 mg PO Q6H PRN (Reason: pain, severe) Qty: 20 RF: 0 Discharge Orders: Discharge Order (Routine); Ordered 03/11/21 Ordered By: Paolo Blackwell Admission Data Admit Date/Time: 03/07/21 14:29 Attending Provider: Ivonne Iglesias Admit Provider: Paolo Blackwell Primary Care Provider: PCP,NO Other Providers: Paolo Blackwell ; Sukumar Garcia
--- NOTE | 2021-03-11 14:13 | Hospitalist Progress Note ---
Date of Service March 11, 2021 Assessment & Plan (1) Myelopathy concurrent with and due to spinal stenosis of thoracic region: Plan: Patient presents with lower extremity weakness and numbness MRI of thoracic spine showed evidence of severe stenosis He is day 2 post thoracic decompression and fusion Patients symptoms already markedly improved Rest of mgt per spine surgery (2) Spinal stenosis: Plan: plan as above Plan: Discharge home today per ortho Admission and Anticipated Discharge Date Admission Date: March 07, 2021 Subjective patient seen and examined, participating in PT, numbness and weakness much improved, happy to hear he will be discharged Review of Systems Review of Systems: All systems reviewed are negative, apart from the ones contained in the history. Physical Exam Physical Exam: The patient is awake, alert and oriented 3, well developed and well nourished, normocephalic and atraumatic, lying in bed and in no acute distress. HEENT--PERRL, EOMI, mucous membranes and oropharynx mildly dry Neck--supple. No JVD. No bruits. Thyroid normal, trachea midline, no adenopathy. Heart--normal S1 and S2. No murmurs, rubs or gallops. Lungs--clear bilaterally, no respiratory distress, no accessory muscle use. Abdomen--normal bowel sounds and soft. Mild epigastric and left sided abdominal pain Extremities--no cyanosis or clubbing. No edema. Dermatologic--normal skin turgor, normal color, no abnormal lymph nodes, no rash. Neurologic--cranial nerves II through XII grossly intact. Rheumatologic--normal range of motion. Psychiatric--normal affect. Results & Data Results & Data ([facility]) Vital Signs (Past 12 Hours) Vital Signs Temp Pulse Resp BP Pulse Ox 03/11/21 11:33 97.9 F 65 16 136/79 96 03/11/21 06:41 97.9 F 59 L 16 136/79 96 PG Care Time/CCT Total # of Minutes Spent Total Time Spent with Patient: Total time spent is greater than 50% in coordination of care (as documented) at patient's floor/unit and/or counseling patient: Coding Level of Care Code 85334 Inpt Consult Level 2 Diagnoses Myelopathy concurrent with and due to spinal stenosis of thoracic region M48.04; G99.2 Spinal stenosis M48.05 Spinal region: thoracolumbar Time Spent (min) 35 (1) Spinal stenosis Spinal region: thoracolumbar Qualified Code(s): M48.05 - Spinal stenosis, thoracolumbar region
== END 2021-03-11 12:45 | disposition home or self-care (01) | DRG 460 ==
LOC: ED 12:10 → 3N 14:29 → SUATTDRO 14:29 → 3N 16:15